=== PATIENT | female | born 1980 | race American Indian/Alaskan Native ===

== ENCOUNTER 2020-05-12 00:30 | Observation (INO) | payer OTHER ==
[2020-05-12] MEDS ORDERED: SODIUM CHLORIDE 0.9% 1000 ML 1,000 ML IV ONE ×2 (00:57→02:38)
[2020-05-12] MEDS ORDERED: AZITHROMYCIN 500 MG in SODIUM CHLORIDE 0.9% 250ML 250 ML IV ONE (00:57)
--- NOTE | 2020-05-12 01:05 | Emergency Department Report ---
ED Shortness of Breath HPI - General Chief Complaint: Dyspnea/Respdistress Stated Complaint: DIFFICULTY IN BREATHING Time Seen by Provider: 05/12/20 00:47 Source: patient, EMS Mode of arrival: Stretcher Limitations: No Limitations - History of Present Illness Initial Comments: Patient is a 40-year-old female that presents emergency room with complaints of shortness of breath, COVID-19, cough, fever, nausea, vomiting, loss of smell. Patient states the shortness of breath started yesterday. Patient states the rest of her symptoms started a week ago. Patient states she was diagnosed 3 days ago with COVID-19. Patient states that her symptoms are worsening. Patient states that her nausea and vomiting is worsening. Patient dates her shortness of breath better with rest and worse with exertion. Patient denies chest pain. Patient complains of fatigue. Patient denies abdominal pain. Patient brought in by EMS. Report received from EMS. EMS found the patient to be 90% and was placed on 2 L. Patient oxygen saturation improved with 2 L.. MD Complaint: shortness of breath, cough -: Sudden Severity: severe Consistency: constant Improves With: oxygen, rest Worsens With: exertion, movement Context: recent URI Associated Symptoms: fever, cough, nausea/vomiting Treatments Prior to Arrival: oxygen - Related Data Home Oxygen Therapy: No Home Medications Medication Instructions Recorded Confirmed Last Taken No Known Home Medications [No 05/12/20 05/12/20 Unknown Reported Home Medications] Allergies Allergy/AdvReac Type Severity Reaction Status Date / Time cephalexin [From Keflex] Allergy Unknown Verified 05/12/20 01:05 ED Review of Systems ROS: Stated complaint: DIFFICULTY IN BREATHING Other details as noted in HPI Constitutional: chills, fever, malaise Eyes: denies: eye pain, eye discharge, vision change ENT: denies: ear pain, throat pain Respiratory: cough, shortness of breath, SOB with exertion, SOB at rest. denies: wheezing Cardiovascular: denies: chest pain, palpitations Endocrine: no symptoms reported Gastrointestinal: nausea, vomiting. denies: abdominal pain, diarrhea Genitourinary: denies: urgency, dysuria, discharge Musculoskeletal: denies: back pain, joint swelling, arthralgia Skin: denies: rash, lesions Neurological: denies: headache, weakness, paresthesias Psychiatric: denies: anxiety, depression Hematological/Lymphatic: denies: easy bleeding, easy bruising ED Past Medical Hx - Past Medical History Previous Medical History?: No - Surgical History Past Surgical History?: No - Family History Family history: no significant - Social History Smoking Status: Never Smoker Substance Use Type: None - Medications Home Medications: Home Medications Medication Instructions Recorded Confirmed Last Taken Type No Known Home Medications [No 05/12/20 05/12/20 Unknown History Reported Home Medications] ED Physical Exam - General General appearance: alert, in distress - Head Head exam: Present: atraumatic, normocephalic - Eye Eye exam: Present: normal appearance - ENT ENT exam: Present: mucous membranes moist - Neck Neck exam: Present: normal inspection - Respiratory Respiratory exam: Present: respiratory distress, decreased breath sounds - Cardiovascular Cardiovascular Exam: Present: regular rate, normal rhythm. Absent: systolic murmur, diastolic murmur, rubs, gallop - GI/Abdominal GI/Abdominal exam: Present: soft, normal bowel sounds - Extremities Exam Extremities exam: Present: normal inspection - Back Exam Back exam: Present: normal inspection - Neurological Exam Neurological exam: Present: alert, oriented X3 - Psychiatric Psychiatric exam: Present: normal affect, normal mood - Skin Skin exam: Present: warm, dry, intact, normal color. Absent: rash ED Course Vital Signs 05/12/20 05/12/20 01:05 03:12 Temperature 98 F Pulse Rate 82 74 Respiratory 16 16 Rate Blood Pressure 107/61 Blood Pressure 109/61 [Left] O2 Sat by Pulse 96 96 Oximetry - Reevaluation(s) Reevaluation #1: Initial evaluation done. Patient placed on oxygen. 05/12/20 00:49 Reevaluation #2: I discussed all results with patient. I discussed plan of care with patient. Patient agrees with plan of care and admission. Patient to be admitted to the hospitalist service. 05/12/20 04:04 - Consultations Consultation #1: Hospitalist consulted for admission. Hospitalist to admit patient. 05/12/20 04:04 Consultation #2: ID consultation placed. 05/12/20 04:04 ED Medical Decision Making - Lab Data Result diagrams: 05/12/20 02:20 05/12/20 02:23 - Radiology Data Radiology results: report reviewed, image reviewed interpreted by me: Chest x-ray: Bilateral pneumonia, no pneumothorax, no foreign body, no osseous findings, CHEST 1 VIEW 05/12/2020 12:28 AM INDICATION / CLINICAL INFORMATION: Dyspnea. COMPARISON: None available. FINDINGS: SUPPORT DEVICES: None. HEART / MEDIASTINUM: No significant abnormality. LUNGS / PLEURA: There are patchy bilateral pulmonary opacities. No pneumothorax. ADDITIONAL FINDINGS: No significant additional findings. IMPRESSION: 1. Patchy bilateral pulmonary opacities likely reflecting infectious process, possibly viral pneumonia. - Medical Decision Making Patient is a 40-year-old female that presents emergency room with complaints of shortness of breath, nausea, vomiting, COVID-19 symptoms. Patient had a outpatient Covid test which was positive for COVID-19. Patient brought in by EMS and was found to be hypoxic. Patient placed on oxygen and her oxygenation improved. Patient had a chest x-ray which shows viral bilateral pneumonia. Patient had labs done which were consistent with COVID-19. After initial evaluation, patient was given fluids, antibiotics and Decadron. Patient admitted to the hospital service for further evaluation and treatment. - Differential Diagnosis Covid, pneumonia, hypoxia, S OB, nausea, vomiting Critical Care Time: Yes Critical care time in (mins) excluding proc time.: 35 Critical care attestation.: If time is entered above; I have spent that time in minutes in the direct care of this critically ill patient, excluding procedure time. Critical Care Time: 35 minutes ED Disposition Clinical Impression: COVID-19, Viral pneumonia, Hypoxia, SOB (shortness of breath), Cough Pneumonia Qualifiers: Pneumonia type: due to unspecified organism Laterality: bilateral Lung location: unspecified part of lung Qualified Code(s): J18.9 - Pneumonia, unspecified organism Fever Qualifiers: Fever type: unspecified Qualified Code(s): R50.9 - Fever, unspecified Disposition: 09 OP ADMIT IP TO THIS HOSP Is pt being admited?: Yes Does the pt Need Aspirin: No Condition: Critical Instructions: Bacterial Pneumonia (ED) Time of Disposition: 04:04
--- NOTE | 2020-05-12 01:35 | XRay Report ---
CHEST 1 VIEW 05/12/2020 12:28 AM INDICATION / CLINICAL INFORMATION: Dyspnea. COMPARISON: None available. FINDINGS: SUPPORT DEVICES: None. HEART / MEDIASTINUM: No significant abnormality. LUNGS / PLEURA: There are patchy bilateral pulmonary opacities. No pneumothorax. ADDITIONAL FINDINGS: No significant additional findings. IMPRESSION: 1. Patchy bilateral pulmonary opacities likely reflecting infectious process, possibly viral pneumoni a. Signer Name: Norman Stephenson MD Signed: 05/12/2020 1:34 AM Workstation Name: [employer]
[2020-05-12] MEDS ORDERED: dexAMETHasone 4 MG/ML VIAL IV ONE (01:40)
[2020-05-12] MEDS ORDERED: ONDANSETRON 4 MG/2 ML INJ IV ONE (02:38)
[2020-05-12 03:02] LABS: Basophils % (Auto) 0.3 % (0.0-1.8); Hematocrit 38.7 % (30.3-42.9); Lymphocytes # (Auto) 0.7 K/mm3 (1.2-5.4); Lymphocytes % (Auto) 11.4 % (13.4-35.0); Mean Corpuscular HGB Conc 34 % (30-34); Mean Corpuscular Volume 87 fl (79-97); Monocytes # (Auto) 0.3 K/mm3 (0.0-0.8); Monocytes % (Auto) 5.3 % (0.0-7.3); Platelet Count 210 K/mm3 (140-440); Red Blood Count 4.44 M/mm3 (3.65-5.03)
[2020-05-12 03:20] LABS: C-Reactive Protein 7.9 mg/dL (0.00-1.30)
[2020-05-12 03:39] LABS: Alanine Aminotransferase 50 units/L (7-56); Blood Urea Nitrogen 9 mg/dL (7-17); Calcium 7.9 mg/dL (8.4-10.2); Hemolysis Index 0
[2020-05-12 03:51] LABS: BUN/Creatinine Ratio 13
--- NOTE | 2020-05-12 04:00 | History and Physical Report ---
History of Present Illness Date of examination: 05/12/20 Date of admission: 05/12/20 Chief complaint: shortness of breath History of present illness: This is a 40 year old femal patient seen at bedside in ED. She presents with complaints of shortness of breath, test positive for COVID-19, she said 3 days ago. At the time of my assessment, patient reports cough, fever, nausea, vomiting, loss of smell, but denies chest pain. She said shortness of breath has improved and she is on room air. Patient states the shortness of breath has worsen since yesterday. Patient states the rest of her symptoms started a week ago. Patient states that her symptoms are worsening and she decided to come to ED. Patient dates her shortness of breath better with rest and worse with exertion. She denies any past medical History but reports her father and mother have hypertension. patient denies tobacco, alcohol and illicit drug use. ED work up shows Chest [id number] lung opacity-suspicious of Viral PNA Sodium 138, potassium 3.4, Cr 0.7, d-dimer 286.09, hemoglobin 13.0 and WBC 6.4 LDH 197, CRP 7.90, and ferritin 476.1 Past History Past Surgical History: No surgical history Social history: no significant social history Family history: hypertension (mother and father have hypertension) Medications and Allergies Allergies Allergy/AdvReac Type Severity Reaction Status Date / Time cephalexin [From Keflex] Allergy Unknown Verified 05/12/20 01:05 Home Medications Medication Instructions Recorded Confirmed Last Taken Type No Known Home Medications [No 05/12/20 05/12/20 Unknown History Reported Home Medications] Active Meds: Active Medications Sodium Chloride (Nacl 0.9% 1000 Ml) 1,000 mls @ 250 mls/hr IV ONCE ONE Stop: 05/12/20 06:37 Last Admin: 05/12/20 03:09 Dose: 250 mls/hr Documented by: Review of Systems Constitutional: fever, fatigue, weakness, malaise, poor appetite, no weight loss, no anorexia Ears, nose, mouth and throat: no ear pain, no ear discharge, no tinnitis, no decreased hearing, no epistaxis Breasts: normal, no discharge, no pain Cardiovascular: dyspnea on exertion, no chest pain Respiratory: cough, shortness of breath, dyspnea on exertion, respiratory infections, no wheezing, no home oxygen Gastrointestinal: nausea, no diarrhea, no constipation, no dyspepsia/bloating Genitourinary Female: dysmenorrhea, no pelvic pain, no hematuria Rectal: no pain, no incontinence Musculoskeletal: muscle weakness, myalgias Integumentary: no rash Neurological: no head injury Psychiatric: no disorientation Endocrine: no excessive sweating Exam - Constitutional Vitals: Temp Pulse Resp BP Pulse Ox 98 F 74 16 109/61 96 05/12/20 01:05 05/12/20 03:12 05/12/20 03:12 05/12/20 03:12 05/12/20 03:12 General appearance: Present: mild distress - EENT Eyes: Present: PERRL ENT: hearing intact, clear oral mucosa - Neck Neck: Present: supple, normal ROM - Respiratory Respiratory effort: normal, other (shortness of breath) Respiratory: bilateral: CTA - Cardiovascular Heart rate: 74 Heart Sounds: Present: S1 & S2. Absent: rub, click - Extremities Extremities: pulses symmetrical, No edema Peripheral Pulses: within normal limits - Abdominal General gastrointestinal: Present: soft, non-tender, non-distended, normal bowel sounds Female genitourinary: Present: normal - Integumentary Integumentary: Present: clear, warm, dry - Musculoskeletal Musculoskeletal: generalized weakness - Psychiatric Psychiatric: appropriate mood/affect, intact judgment & insight, cooperative - Neurologic Neurologic: CNII-XII intact, moves all extremities - Allied Health Allied health notes reviewed: nursing Results - Labs CBC & Chem 7: 05/12/20 02:20 05/12/20 02:23 Labs: Abnormal lab results 05/12/20 05/12/20 05/12/20 Range/Units 02:19 02:19 02:20 RDW 13.0 L (13.2-15.2) % Lymph % (Auto) 11.4 L (13.4-35.0) % Lymph # (Auto) 0.7 L (1.2-5.4) K/mm3 Seg Neutrophils % 83.0 H (40.0-70.0) % D-Dimer 286.09 H (0-234) ng/mlDDU Potassium (3.6-5.0) mmol/L Glucose (65-100) mg/dL Calcium (8.4-10.2) mg/dL Ferritin 476.1 H (10.0-200.0) ng/mL Lactate Dehydrogenase (91-180) units/L C-Reactive Protein (0.00-1.30) mg/dL Albumin (3.9-5) g/dL 05/12/20 05/12/20 Range/Units 02:20 02:23 RDW (13.2-15.2) % Lymph % (Auto) (13.4-35.0) % Lymph # (Auto) (1.2-5.4) K/mm3 Seg Neutrophils % (40.0-70.0) % D-Dimer (0-234) ng/mlDDU Potassium 3.4 L (3.6-5.0) mmol/L Glucose 102 H (65-100) mg/dL Calcium 7.9 L (8.4-10.2) mg/dL Ferritin (10.0-200.0) ng/mL Lactate Dehydrogenase 197 H (91-180) units/L C-Reactive Protein 7.90 H (0.00-1.30) mg/dL Albumin 3.0 L (3.9-5) g/dL Assessment and Plan - Patient Problems (1) Acute respiratory failure with hypoxia Current Visit: Yes Status: Acute Plan to address problem: likely 2/2 to viral/bacterial PNA Respiratory care-oxygen supplement ABGs Chest x-ray (2) COVID-19 Current Visit: Yes Status: Acute Plan to address problem: Patient is covid positive Elevated inflammatory makers Check inflammatory makers d-dimer, CRP, LDH, ferritin and procalcitonine Consult ID and diabetes educator Decadrone 6mg IV daily Ascorbic acid and zinc sulphate Monitor oxygen saturation Will start experimental drug per covid protocol per ID (3) Viral pneumonia Current Visit: Yes Status: Acute Plan to address problem: azithromycin monitor inflammatory makers Serial chest x-ray (4) SOB (shortness of breath) Current Visit: Yes Status: Acute Plan to address problem: likely 2/2 to covid infection-has improved- patient on room air at the time of assessment bronchodilator and systemic steroids oxygen supplement PRN (5) Hypokalemia Current Visit: Yes Status: Acute Plan to address problem: replete potassium am lab bmp and mag level (6) DVT prophylaxis Current Visit: Yes Status: Acute Plan to address problem: Lovenox (7) Advance care planning Current Visit: Yes Status: Acute Plan to address problem: Full code
[2020-05-12] MEDS ORDERED: traZODone 50 MG TAB PO PRN (04:16)
[2020-05-12] MEDS ORDERED: LACTULOSE 20 GM/30 ML ORAL LIQD PO PRN (04:16)
[2020-05-12] MEDS ORDERED: ONDANSETRON 4 MG/2 ML INJ IV PRN (04:16)
[2020-05-12] MEDS ORDERED: ALUM-MAG HYDROXIDE-SIMETHICONE 200-200-20MG/5ML ORAL LIQD 30 ML PO PRN (04:46)
[2020-05-12] MEDS ORDERED: POTASSIUM CHLORIDE ER 20 MEQ TAB PO ONE ×2 (05:14→06:10)
[2020-05-12] MEDS ORDERED: dexAMETHasone 4 MG/ML VIAL IV SCH (10:00)
[2020-05-12] MEDS ORDERED: AZITHROMYCIN 500 MG in SODIUM CHLORIDE 0.9% 250ML 250 ML IV SCH (10:00)
[2020-05-12] MEDS: ENOXAPARIN 40 MG/0.4 ML INJ SUB-Q SCH (10:24)
[2020-05-12] MEDS: ASCORBIC ACID 500 MG TAB PO SCH (10:24)
--- NOTE | 2020-05-12 15:40 | Consultation ---
History of Present Illness - Reason for Consult Consult date: 05/12/20 COVID Requesting physician: NEY ART III - History of Present Illness The patient is a 40-year-old female patient with no significant past medical history was admitted to the hospital with complaints of cough, shortness of breath. She tested positive for COVID-19 as an outpatient 3 days prior to coming in. Chest x-ray showed bilateral lung opacities concerning for typical Covid pneumonia. Labs showed elevated ferritin at 476.1, CRP 7.9, LDH 197. D- dimer 286.09. Patient has been on room air. She is afebrile here. Review of Systems: reviewed in the chart, unable to obtain directly due to PPE preservation and minimize risk of transmission Past History Past Surgical History: No surgical history Social history: no significant social history Family history: hypertension (mother and father have hypertension) Medications and Allergies Allergies Allergy/AdvReac Type Severity Reaction Status Date / Time cephalexin [From Keflex] Allergy Unknown Verified 05/12/20 01:05 Home Medications Medication Instructions Recorded Confirmed Last Taken Type No Known Home Medications [No 05/12/20 05/12/20 Unknown History Reported Home Medications] Active Meds: Active Medications Al Hydrox/Mg Hydrox/Simethicone (Alum-Mag Hydrox-Simeth [id number]/5ml) 15 ml PO Q4H PRN PRN Reason: Indigestion Ascorbic Acid (Vitamin C) 500 mg PO QDAY [facility] Last Admin: 05/12/20 10:24 Dose: 500 mg Documented by: Dexamethasone (Decadron) 6 mg IV Q24HR [facility]IV[facility] Last Admin: 05/12/20 10:24 Dose: 6 mg Documented by: Enoxaparin Sodium (Enoxaparin) 40 mg SUB-Q QDAY [facility]; Protocol Last Admin: 05/12/20 10:24 Dose: 40 mg Documented by: Azithromycin 500 mg/ Sodium (Chloride) 250 mls @ 250 mls/hr IV Q24HR LIVIA; Protocol Last Infusion: 05/12/20 11:37 Dose: Infused Documented by: Lactulose (Cephulac) 20 gm PO QDAY PRN PRN Reason: Constipation Ondansetron HCl (Zofran) 4 mg IV Q4H PRN PRN Reason: Nausea And Vomiting Trazodone HCl (Desyrel) 50 mg PO QHS PRN PRN Reason: Insomnia Physical Examination - Physical Exam Narrative exam: Physical Exam (reviewed in chart due to PPE conservation and minimize risk of transmission) Constitutional: limited due to PPE conservation strategy Head, Ears, Nose: limited due to PPE conservation strategy Eyes: limited due to PPE conservation strategy Neck: limited due to PPE conservation strategy Oral: limited due to PPE conservation strategy Cardiovascular: limited due to PPE conservation strategy Respiratory: limited due to PPE conservation strategy GI: limited due to PPE conservation strategy Musculoskeletal: limited due to PPE conservation strategy Skin: limited due to PPE conservation strategy Hem/Lymphatic: limited due to PPE conservation strategy Psych: limited due to PPE conservation strategy Neurological: limited due to PPE conservation strategy - Constitutional Vitals: Vital Signs Temp Pulse Resp BP Pulse Ox 98 F 89 20 106/63 97 05/12/20 01:05 05/12/20 08:00 05/12/20 08:00 05/12/20 08:00 05/12/20 08:00 Temperature -Last 24 Hours Temperature 98 F Results - Labs CBC & Chem 7: 05/12/20 02:20 05/12/20 02:23 Labs: Abnormal lab results 05/12/20 05/12/20 05/12/20 Range/Units 02: 02:19 02:20 RDW 13.0 L (13.2-15.2) % Lymph % (Auto) 11.4 L (13.4-35.0) % Lymph # (Auto) 0.7 L (1.2-5.4) K/mm3 Seg Neutrophils % 83.0 H (40.0-70.0) % D-Dimer 286.09 H (0-234) ng/mlDDU Potassium (3.6-5.0) mmol/L Glucose (65-100) mg/dL Calcium (8.4-10.2) mg/dL Ferritin 476.1 H (10.0-200.0) ng/mL Lactate Dehydrogenase (91-180) units/L C-Reactive Protein (0.00-1.30) mg/dL Albumin (3.9-5) g/dL 05/12/20 05/12/20 Range/Units 02:20 02:23 RDW (13.2-15.2) % Lymph % (Auto) (13.4-35.0) % Lymph # (Auto) (1.2-5.4) K/mm3 Seg Neutrophils % (40.0-70.0) % D-Dimer (0-234) ng/mlDDU Potassium 3.4 L (3.6-5.0) mmol/L Glucose 102 H (65-100) mg/dL Calcium 7.9 L (8.4-10.2) mg/dL Ferritin (10.0-200.0) ng/mL Lactate Dehydrogenase 197 H (91-180) units/L C-Reactive Protein 7.90 H (0.00-1.30) mg/dL Albumin 3.0 L (3.9-5) g/dL - Imaging and Cardiology Chest x-ray: report reviewed, image reviewed (b/l few patchy infiltrates) Assessment and Plan Cultures: SARS CoV2 PCR: Reportedly positive as outpatient A/P: 40/F with: #Bilateral pneumonia: Secondary to COVID-19. Patient only had transient hypoxia, now saturating 98% on room air. Recs: Patient is not hypoxic, does not meet criteria for steroids or remdesivir Procalcitonin is low, antibiotics not indicated Get ambulatory saturations, if not hypoxic, can consider discharge Kurtis Mercer MD, FACP [facility] ([facility]) O: [phone] F: [phone]
[2020-05-12 18:44] VITALS: BP 99/71
[2020-05-13 07:00] LABS: Basophils % (Auto) 0.1 % (0.0-1.8); Eosinophils % (Auto) 0.1 % (0.0-4.3); Hematocrit 39.1 % (30.3-42.9); Hemoglobin 12.9 gm/dl (10.1-14.3); Mean Corpuscular HGB Conc 33 % (30-34); Mean Corpuscular Volume 89 fl (79-97); Monocytes # (Auto) 0.5 K/mm3 (0.0-0.8); Monocytes % (Auto) 6.9 % (0.0-7.3); Platelet Count 251 K/mm3 (140-440); Red Blood Count 4.39 M/mm3 (3.65-5.03); Red Cell Distribution Width 13.1 % (13.2-15.2)
[2020-05-13 07:04] LABS: Blood Urea Nitrogen 8 mg/dL (7-17); Calcium 8.2 mg/dL (8.4-10.2); Hemolysis Index 12
[2020-05-13 07:13] LABS: Alanine Aminotransferase 23 units/L (7-56); Albumin 2.9 g/dL (3.9-5); Blood Urea Nitrogen 5 mg/dL (7-17); Calcium 8.7 mg/dL (8.4-10.2); Hemolysis Index 28
[2020-05-13 07:21] LABS: BUN/Creatinine Ratio 8
[2020-05-13 07:21] LABS: BUN/Creatinine Ratio 16
[2020-05-13] MEDS ORDERED: POTASSIUM CHLORIDE ER 20 MEQ TAB PO NR (08:00)
[2020-05-13] MEDS ORDERED: DEXAMETHASONE 4 MG TAB PO SCH (10:00)
--- NOTE | 2020-05-13 10:11 | Discharge Summary ---
Providers - Providers Date of Admission: 05/12/20 04:26 Date of discharge: 05/13/20 Attending physician: FELICITAS GAMBOA 05/12/20 02:37 Consult to Physician [CONS] Routine Comment: Consulting Provider: UBALDO SHEARER Physician Instructions: Reason For Exam: covid Primary care physician: SAMPLE MAKER Hospitalization Condition: Critical Hospital course: 40 year old with no prior medical history who presents with complaints of shortness of breath. She test positive for COVID-19 about 3 days prior to presentation. She started having some shortness of breath that was worse prior to presentation. Patient reports cough, fever, nausea, vomiting, loss of smell, but denies chest pain. She said shortness of breath has improved. She feel her symptoms are worsening so she came for further evaluation. She denies any past medical History but reports her father and mother have hypertension. patient denies tobacco, alcohol and illicit drug use. In emergency room, she had a chest x-ray done that showed bilateral lung opacity suspicious of viral pneumonia. She had elevated inflammatory markers. She was started on antibiotics and dexamethasone on yesterday. ID was consulted. Patient remained on room air throughout hospitalization. ID evaluated patient advised to remdesivir and antibiotics as she is not hypoxic and her procalcitonin is negative. She had a walk test for more than 30 minutes and her sats remained in the 95%. She was discharged home today. Disposition: - TO HOME OR SELFCARE - Discharge Diagnoses (1) COVID-19 Status: Acute (2) Viral pneumonia Status: Acute Core Measure Documentation - Palliative Care Palliative Care/ Comfort Measures: Not Applicable - Core Measures Any of the following diagnoses?: none Exam - Constitutional Vitals: Temp Pulse Resp BP Pulse Ox 97.5 F L 75 20 99/71 98 05/12/20 18:42 05/12/20 18:42 05/12/20 18:42 05/12/20 18:42 05/12/20 18:42 Plan Additional Instructions: Continue to monitor oxygen saturation at home with a pulse oximeter. Continue zinc and ascorbic acid. Return to the emergency room if symptoms get worse. Follow up with: PRIMARY CARE, [Primary Care Provider] - 7 Days Prescriptions: Apixaban [Eliquis] 2.5 mg PO BID #14 tablet Ascorbic Acid [Vitamin C] 500 mg PO QDAY #10 tablet Zinc Sulfate 220 mg PO DAILY #10 tablet
[2020-05-13] MEDS: ENOXAPARIN 40 MG/0.4 ML INJ SUB-Q SCH (10:14)
[2020-05-13] MEDS: ASCORBIC ACID 500 MG TAB PO SCH (10:16)
--- NOTE | 2020-05-13 13:01 | Progress Note ---
Assessment and Plan Cultures: SARS CoV2 PCR: Reportedly positive as outpatient A/P: 40/F with: #Bilateral pneumonia: Secondary to COVID-19. Patient only had transient hypoxia, has since remained on room air. Recs: Remains on room air, does not meet criteria for steroids or remdesivir Sats stable on ambulatory sat monitoring, OK for discharge from ID standpoint Will sign off. Please call with questions. Kurtis Mercer MD, FACP [facility] ([facility]) O: [phone] F: [phone] Subjective Date of service: 05/13/20 Interval history: No fever. Remains on room air. Objective - Exam Narrative Exam: Physical Exam (reviewed in chart due to PPE conservation and minimize risk of transmission) Constitutional: limited due to PPE conservation strategy Head, Ears, Nose: limited due to PPE conservation strategy Eyes: limited due to PPE conservation strategy Neck: limited due to PPE conservation strategy Oral: limited due to PPE conservation strategy Cardiovascular: limited due to PPE conservation strategy Respiratory: limited due to PPE conservation strategy GI: limited due to PPE conservation strategy Musculoskeletal: limited due to PPE conservation strategy Skin: limited due to PPE conservation strategy Hem/Lymphatic: limited due to PPE conservation strategy Psych: limited due to PPE conservation strategy Neurological: limited due to PPE conservation strategy - Constitutional Vitals: Vital Signs Temp Pulse Resp BP Pulse Ox 97.5 F L 75 20 99/71 97 05/12/20 18:42 05/12/20 18:42 05/12/20 18:42 05/12/20 18:42 05/13/20 12:03 Temperature -Last 24 Hours Temperature 97.5 F - Labs CBC & Chem 7: 05/13/20 06:31 05/13/20 06:35 Labs: Abnormal lab results 05/13/20 05/13/20 05/13/20 Range/Units 06:31 06:31 06:35 RDW 13.1 L (13.2-15.2) % Lymph % (Auto) 13.0 L (13.4-35.0) % Lymph # (Auto) 1.0 L (1.2-5.4) K/mm3 Seg Neutrophils % 79.9 H (40.0-70.0) % Potassium 3.5 L (3.6-5.0) mmol/L Chloride 107.1 H (98-107) mmol/L BUN 5 L (7-17) mg/dL Creatinine 0.5 L (0.6-1.2) mg/dL Glucose 112 H (65-100) mg/dL Calcium 8.2 L (8.4-10.2) mg/dL Total Protein 5.2 L (6.3-8.2) g/dL Albumin 2.9 L (3.9-5) g/dL
== END 2020-05-13 14:10 | disposition home or self-care (01) ==
LOC: ED 00:30 → 3A 04:26
PROVIDERS: ADMIT Internal Medicine Geriatric Medicine; ATTEND Internal Medicine
DX: U07.1 COVID-19 (principal); J96.01 Acute respiratory failure with hypoxia; J18.9 Pneumonia, unspecified organism; E87.6 Hypokalemia; R50.9 Fever, unspecified; R05 Cough; Z79.899 Other long term (current) drug therapy
CPT/HCPCS: 36415; 71045; 80053; 82140; 82728; 82947; 83615; 84145; 85025; 85379; 86140; 87040; 96361; 96365; 96366; 96372; 96375; 96376; 99291; G0378; J0456; J1100; J1650; J2405; J7030; J7050; J8540; 80048